=== PATIENT | female | born 1960 | race Caucasian/White ===

== ENCOUNTER → 2020-11-19 | Outpatient (CLI) | payer OTHER ==
[~2020-11-19] MED LIST: AMBEREN; ASA81BEC PO; CALCIUM OYSTER500 MG; CARBIDOPA-LEVO1 EA10 PO; CARTIA XT120 M1 PO; FLEXERIL PO; LEVO-T75 MCG PO; LORTAB 5 MG/5001 TA1; NORCO 5-325 TA1 EAC1 PO; PREDNISONE 20 M20 MG PO; SYNTHROID75 MCG PO; VENTOLIN HFA 1818 GM INH; ZPAK PO
== END ==
LOC: PET 08:54
PROVIDERS: ATTEND Family Medicine
DX: R91.8 Other nonspecific abnormal finding of lung field (principal)